=== PATIENT | female | born 1970 | race African-American/Black ===

== ENCOUNTER 2017-10-22 10:09 | Outpatient (CLI) | payer MEDICARE, MEDICAID ==
[2017-10-22] MEDS ORDERED: Iopamidol 370 76% 100 ML VIAL ONE (12:02)
--- NOTE | 2017-10-22 14:54 | CT ---
CT NECK WITH CONTRAST: Date: 10-22-17 History: 46-year-old female with left supraclavicular neck pain with swelling. M54.2, cervical (neck) pain. Technique: IV injection of 100 ml Isovue 370 90 second delayed scans from mid orbits to several centimeters inferior to the gagandeep. Coronal and sa gittal reconstructions. FINDINGS: No consolidation at lung apices. No upper mediastinal lymphadenopathy. Left and right lobes of thyroi d gland are symmetrically mildly enlarged. Body habitus and streak artifact makes it difficult to elvia luate the thyroid parenchyma. Bilaterally medialized, tortuous common carotid arteries and internal c arotid arteries in the retropharyngeal space, symmetrically distorting the posterior pharyngeal wall bilaterally. No tumor of the larynx identified. Thickening of the adenoids. No evidence of mass, absc ess, or lymphadenopathy by size criteria. No destructive osseous lesion of the left clavicle. There i s bilateral moderate DJD at AC joints. There are several subchondral cysts at the heads of the clavic les bilaterally, left greater than right. The left clavicular head is subluxed slightly superiorly re lative to the manubrium of the sternum. The palatine tonsils are also bilaterally symmetrically enlar ged, and almost contact each other at midline, resulting in narrowing of the oropharyngeal airway. Th e parapharyngeal, submandibular, parotid, perivertebral, posterior cervical, and district fire chief spaces ar e unremarkable. There are scattered, minimally enlarged cervical lymph nodes diffusely. The lingual t onsil is diffusely enlarged. IMPRESSION: 1. Arthrosis and subluxation of the left sternoclavicular junction. 2. Mild to moderate osteoarthrosis of the bilateral acromioclavicular joints. 3. Hyperplasia of Waldeyer's ring. 4. Moderate thyromegaly. 5. Narrowing of the oropharyngeal airway due to tortuous, medialized carotid arteries in the retropha ryngeal space, and enlarged palatine tonsils. 6. No evidence of malignancy. POS: ANTONIO
== END 2017-10-22 10:10 | disposition home or self-care (01) ==
LOC: CT 10:09
PROVIDERS: ATTEND Specialist
DX: M54.2 Cervicalgia (principal); S43.202A Unspecified subluxation of left sternoclavicular joint, initial encounter; J35.3 Hypertrophy of tonsils with hypertrophy of adenoids; E01.0 Iodine-deficiency related diffuse (endemic) goiter
CPT/HCPCS: 70491

== ENCOUNTER 2017-10-23 07:37 | Outpatient (CLI) | payer MEDICARE, MEDICAID | END 2017-10-23 07:38 | disposition home or self-care (01) | LOC: BICMAMMO 07:37 | PROVIDERS: ATTEND Nurse Practitioner Family | DX: Z12.31 Encounter for screening mammogram for malignant neoplasm of breast (principal) | CPT/HCPCS: 77067; G0202 ==

== ENCOUNTER 2017-12-01 09:28 | Outpatient (CLI) | payer MEDICARE, MEDICAID | END 2017-12-01 09:29 | disposition home or self-care (01) | LOC: BICMAMMO 09:28 | PROVIDERS: ATTEND Nurse Practitioner Family | DX: N63.20 Unspecified lump in the left breast, unspecified quadrant (principal); R92.2 Inconclusive mammogram; D24.2 Benign neoplasm of left breast | CPT/HCPCS: 76642; G0206; G0279 ==

== ENCOUNTER → 2017-12-09 | Day surgery (SDC) | payer MEDICARE, MEDICAID | LOC: BICULT 14:14 | PROVIDERS: ATTEND Nurse Practitioner Family | DX: D24.2 Benign neoplasm of left breast (principal); Z88.5 Allergy status to narcotic agent; Z91.048 Other nonmedicinal substance allergy status | CPT/HCPCS: 19100; 76942; 88305; G0206 ==

== ENCOUNTER 2019-03-16 13:52 | Outpatient (CLI) | payer MEDICARE, MEDICAID ==
--- NOTE | 2019-03-16 14:37 | MMO ---
Bilateral MAMMO Bilat Screen [facility]. CLINICAL HISTORY: Patient is 48 years old and is seen for screening. The patient has no family history of breast cancer. The patient has no personal history of cancer. The patient has a history of left Ultrasound Guided Core Biopsy in 2018 - benign. VIEWS: The views performed were: bilateral craniocaudal; bilateral craniocaudal with tomosynthesis; bilateral mediolateral oblique; and bilateral mediolateral oblique with tomosynthesis. FILMS COMPARED: The present examination has been compared to prior imaging studies performed at [facility] on 10/23/2017 and 12/01/2017. MAMMOGRAM FINDINGS: There are scattered fibroglandular densities. There is a stable oval mass with circumscribed margins and associated biopsy clip seen in the upper-outer region of the left breast. There are no suspicious masses, suspicious calcifications, or new areas of architectural distortion. IMPRESSION: THERE IS NO MAMMOGRAPHIC EVIDENCE OF MALIGNANCY. A ROUTINE FOLLOW-UP MAMMOGRAM IN 1 YEAR IS RECOMMENDED. THE RESULTS OF THIS EXAM WERE SENT TO THE PATIENT. ACR BI-RADS Category 2 - Benign finding MAMMOGRAPHY NOTE: 1. A negative mammogram report should not delay a biopsy if a dominant of clinically suspicious mass is present. 2. Approximately 10% to 15% of breast cancers are not detected by mammography. 3. Adenosis and dense breasts may obscure an underlying neoplasm.
== END 2019-03-16 13:53 | disposition home or self-care (01) ==
LOC: BICMAMMO 13:52
PROVIDERS: ATTEND Family Medicine
DX: Z12.31 Encounter for screening mammogram for malignant neoplasm of breast (principal)
CPT/HCPCS: 77063; 77067

== ENCOUNTER 2019-09-20 10:16 | Emergency (ER) | payer MEDICARE, OTHER ==
[2019-09-20] MEDS ORDERED: Dexamethasone 10 MG/ML VIAL ONE (11:05)
[2019-09-20] MEDS ORDERED: Acetaminophen 500 MG TAB ONE (12:09)
== END 2019-09-20 12:13 | disposition home or self-care (01) ==
LOC: ERS 10:16
DX: J98.01 Acute bronchospasm (principal); B34.9 Viral infection, unspecified; B20 Human immunodeficiency virus [HIV] disease; I10 Essential (primary) hypertension
CPT/HCPCS: 94640; J1100; J7620

== ENCOUNTER 2019-12-29 08:41 | Emergency (ER) | payer MEDICARE, OTHER ==
[2019-12-29 09:12] LABS: #Eosinphils 0.1 thou/uL (0.0-0.7); #Lymphocytes 1.8 thou/uL (1.20-3.40); #Monocytes 0.7 thou/uL (0.11-0.59); #Neutrophils 4.2 thou/uL (1.40-6.50); %Basophils 0.7 % (0.0-1.0); %Eosinophils 1.3 % (0.0-10.0); %Monocytes 9.9 % (0.0-10.0); %Neutrophils 62.2 % (42.0-75.0); Hemoglobin 14.6 g/dL (12.0-16.0); Mean Corpuscular HGB CONC 32.8 g/dL (32.0-36.0); Mean Corpuscular Hemoglobin 28.7 pg (27.0-31.0); Mean Corpuscular Volume 87.6 fL (78.0-98.0); Platelet Count 227 thou/uL (130-400); RBC Distribution Width 12.3 % (11.5-14.5); Red Blood Cell (RBC) Count 5.07 mill/uL (4.20-5.40); White Blood Cell (WBC) Count 6.8 thou/uL (4.8-10.8)
[2019-12-29 09:12] LABS: Bacteria/HPF 3+ HPF (None Seen); Bilirubin Negative (Negative); Blood, Urine Negative (Negative); Clarity Clear (Clear); Glucose, Urine (Dipstick) Normal (Negative); Leukocyte 250 Leu/uL (Negative); Nitrite Negative (Negative); Protein, Urine (Dipstick) 20 mg/dL (Neg-Trace); RBC/HPF 0-3 HPF (0-3); Squamous Epithelial 0-3 HPF (0-3); Urobilinogen 3 mg/dL (Less than 2); WBC/HPF 21-50 HPF (0-3)
[2019-12-29 09:28] LABS: ALT (SGPT) 43 U/L (8-55); AST (SGOT) 34 U/L (5-34); Albumin 4.3 g/dL (3.5-5.0); Alkaline Phosphatase 67 U/L (40-110); Anion Gap 12 mmol/L (10-20); BUN (Urea Nitrogen) 8 mg/dL (7.0-18.7); Bilirubin, Total 1.2 mg/dL (0.2-1.2); Calc. Creatinine Clearance 0 mL/min (70-130); Calcium 9.9 mg/dL (7.8-10.44); Carbon Dioxide 26 mmol/L (22-29); Chloride 106 mmol/L (98-107); Estimated GFR-MDRD 87; Globulin 3.5 g/dL (2.4-3.5); Glucose 109 mg/dL (70-105); Potassium 4.1 mmol/L (3.5-5.1); Protein, Total 7.8 g/dL (6.0-8.3); Sodium 140 mmol/L (136-145)
--- NOTE | 2019-12-29 10:09 | RAD ---
Exam: Chest one view HISTORY:Syncope Comparison: 07/15/2006 FINDINGS: Cardiac silhouette: Normal Aorta: Unremarkable Pulmonary vessels: Normal Costophrenic angles: Clear LUNGS: No masses or consolidation. Pneumothorax: None Osseous abnormalities: None IMPRESSION: No acute cardiopulmonary process.
== END 2019-12-29 11:22 | disposition home or self-care (01) ==
LOC: ERS 08:41
DX: N39.0 Urinary tract infection, site not specified (principal); I10 Essential (primary) hypertension; B20 Human immunodeficiency virus [HIV] disease
CPT/HCPCS: 36415; 71045; 80053; 81003; 81015; 83880; 84484; 85025; 93005

== ENCOUNTER 2020-03-26 16:29 | Inpatient (IN) | payer MEDICARE, MEDICAID, OTHER ==
[2020-03-26 17:14] LABS: #Eosinphils 0.1 thou/uL (0.0-0.7); #Lymphocytes 1.4 thou/uL (1.20-3.40); #Monocytes 0.5 thou/uL (0.11-0.59); #Neutrophils 2.6 thou/uL (1.40-6.50); %Basophils 0.3 % (0.0-1.0); %Eosinophils 1.7 % (0.0-10.0); %Lymphocytes 30.2 % (21.0-51.0); %Monocytes 10.9 % (0.0-10.0); Hemoglobin 14.3 g/dL (12.0-16.0); Mean Corpuscular HGB CONC 31.4 g/dL (32.0-36.0); Mean Corpuscular Hemoglobin 27.4 pg (27.0-31.0); Mean Corpuscular Volume 87.2 fL (78.0-98.0); Mean Platelet Volume 9.3 fL (7.4-10.4); Platelet Count 210 thou/uL (130-400); RBC Distribution Width 12.9 % (11.5-14.5); Red Blood Cell (RBC) Count 5.24 mill/uL (4.20-5.40); White Blood Cell (WBC) Count 4.6 thou/uL (4.8-10.8)
--- NOTE | 2020-03-26 17:36 | RAD ---
EXAM: CHEST ONE VIEW PORTABLE: History: Shortness of breath, sore throat Comparison: 12-29-2019 FINDINGS: There is cardiomegaly. There is bilateral vascular congestion which is more prominent than on the loly or study. Probable small pleural effusions. IMPRESSION: Cardiomegaly with worsening vascular congestion and possible mild edema and small pleural effusions c oncerning for the possibility of congestive heart failure. POS: [facility]
[2020-03-26 17:49] LABS: ALT (SGPT) 24 U/L (8-55); AST (SGOT) 19 U/L (5-34); Albumin 4.1 g/dL (3.5-5.0); Alkaline Phosphatase 59 U/L (40-110); Anion Gap 12 mmol/L (10-20); BUN (Urea Nitrogen) 11 mg/dL (7.0-18.7); Calc. Creatinine Clearance 0 mL/min (70-130); Calcium 9.5 mg/dL (7.8-10.44); Carbon Dioxide 24 mmol/L (22-29); Chloride 108 mmol/L (98-107); Estimated GFR-MDRD 78; Globulin 3.4 g/dL (2.4-3.5); Glucose 116 mg/dL (70-105); Potassium 3.8 mmol/L (3.5-5.1); Protein, Total 7.5 g/dL (6.0-8.3); Sodium 140 mmol/L (136-145)
[2020-03-26] MEDS ORDERED: Furosemide 40 MG/4 ML VIAL ONE (19:19)
[2020-03-26] MEDS ORDERED: Nitroglycerin 2% Ointment 1 INCH/1 GM Packet ONE (19:19)
[2020-03-26] MEDS ORDERED: Aspirin Chewable 81 MG TAB ONE (19:19)
[2020-03-26 19:59] LABS: Bacteria/HPF 4+ HPF (None Seen); Bilirubin Negative (Negative); Blood, Urine Trace (Negative); Clarity Turbid (Clear); Glucose, Urine (Dipstick) Normal (Negative); Leukocyte Negative Leu/uL (Negative); Nitrite Negative (Negative); Protein, Urine (Dipstick) 30 mg/dL (Neg-Trace); RBC/HPF 0-3 HPF (0-3); Urobilinogen Normal mg/dL (Less than 2); WBC/HPF 0-3 HPF (0-3)
[2020-03-26] MEDS ORDERED: Acetaminophen 500 MG TAB ONE (21:07)
[2020-03-26 22:11] VITALS: BMI 53.1
[2020-03-26] MEDS ORDERED: Calcium Carbonate 500 MG ChewTAB PO PRN (23:05)
[2020-03-26 23:20] LABS: Troponin I 0.018 ng/mL (< 0.028)
--- NOTE | 2020-03-26 23:25 | PDOC.FPRHP ---
- History of Present Illness Chief Complaint: Dyspnea History of Present Illness: 49yo AAF with h/o HIV on HAART presents for subacute dyspnea. Patient endorses worsening SOB for the past week without acute event or change. Worsening dyspnea with exertion, unable to walk 1 block without SOB. Endorses 4 pillow orthopnea. PND for the past month. Worsening LE edema BL. Denies any recent illnesses, recent surgery, or immobilization. Denies CP, n/v, diaphoresis, cough , congestion, fever/chills, diarrhea/constipation. Denies any cardiac history. Denies recent travel, sick contacts, or known COVID-19 contacts. ED Course: COVID tested. Lasix 40mg, ASA, Nitro. - Allergies/Adverse Reactions Allergies Allergy/AdvReac Type Severity Reaction Status Date / Time hydrocodone Allergy Verified 01/23/20 09:49 tape Allergy Rash Uncoded 01/23/20 09:49 - Home Medications Medication Instructions Recorded Confirmed Type Bictegrav/Emtricit/Tenofov Ala 1 tab PO DAILY 03/26/20 03/26/20 History [Biktarvy 50-200-25 mg Tablet] - History PMHx: HIV, HTN PSHx: Olena, Hyst FHx: Mother with HTN, DMII, and CHF Social: Denies tob, illicits, EtOH. - Review of Systems General: denies: fever/chills, weight/appetite/sleep changes, night sweats, fatigue Eyes: denies: vision changes ENT: denies: nasal congestion, rhinorrhea Respiratory: reports: shortness of breath, exercise intolerance. denies: cough , congestion Cardiovascular: reports: edema, paroxysmal nocturnal dyspnea, orthopnea. denies : chest pain, palpitation Gastrointestinal: denies: nausea, vomiting, diarrhea, constipation, abdominal pain Genitourinary: denies: incontinence, dysuria Skin: denies: rashes Musculoskeletal: reports: stiffness (chronic OA). denies: pain Neurological: denies: numbness, syncope, weakness - Vital signs BP: 181/111 HR: 89 RR: 22 Tmax: 98.9 Pox: 97% on RA Wt: 172kg - Physical Exam Constitutional: NAD, awake, alert and oriented, well developed, other (obese) HEENT: normocephalic and atraumatic, PERRLA, EOMI, conjunctiva clear, grossly normal vision, grossly normal hearing, normal nasal mucosa, MMM Neck: supple, FROM, trachea midline, no JVD Chest: no-tender to palpation Heart: RRR, normal S1/S2, no murmurs/rubs/gallops, pulses present, other (1+ pitting to mid-avilez BL, slightly worse on R as compared to L) Lungs: no respiratory distress, good air movement, no retractions, other ( slight crackles BL bases. Mild end-expiratory wheeze throughout) Abdomen: soft, non-tender, bowel sounds present, no masses/distention Musculoskeletal: normal structure, normal tone Neurological: no focal deficit Skin: other (venous stasis dermatitis on RLE) Psychiatric: normal mood and affect, good judgment and insight, intact recent and remote memory FMR H&P: Results - Labs Result Diagrams: 03/26/20 16:55 03/26/20 16:55 Lab results: WBC 4.6 thou/uL (4.8-10.8) L 03/26/20 16:55 Hgb 14.3 g/dL (12.0-16.0) 03/26/20 16:55 Hct 45.7 % (36.0-47.0) 03/26/20 16:55 MCV 87.2 fL (78.0-98.0) 03/26/20 16:55 Plt Count 210 thou/uL (130-400) 03/26/20 16:55 Neutrophils % 57.0 % (42.0-75.0) 03/26/20 16:55 Sodium 140 mmol/L (136-145) 03/26/20 16:55 Potassium 3.8 mmol/L (3.5-5.1) 03/26/20 16:55 Chloride 108 mmol/L (98-107) H 03/26/20 16:55 Carbon Dioxide 24 mmol/L (22-29) 03/26/20 16:55 BUN 11 mg/dL (7.0-18.7) 03/26/20 16:55 Creatinine 0.93 mg/dL (0.6-1.1) 03/26/20 16:55 Glucose 116 mg/dL (70-105) H 03/26/20 16:55 Calcium 9.5 mg/dL (7.8-10.44) 03/26/20 16:55 Total Bilirubin 1.0 mg/dL (0.2-1.2) 03/26/20 16:55 AST 19 U/L (5-34) 03/26/20 16:55 ALT 24 U/L (8-55) 03/26/20 16:55 Alkaline Phosphatase 59 U/L (40-110) 03/26/20 16:55 B-Natriuretic Peptide 601.3 pg/mL (0-100) H 03/26/20 19:24 Serum Total Protein 7.5 g/dL (6.0-8.3) 03/26/20 16:55 Albumin 4.1 g/dL (3.5-5.0) 03/26/20 16:55 Urine Ketones Negative mg/dL (Negative) 03/26/20 19:34 Urine Blood Trace (Negative) A 03/26/20 19:34 Urine Nitrite Negative (Negative) 03/26/20 19:34 Ur Leukocyte Esterase Negative Caprice/uL (Negative) 03/26/20 19:34 Urine RBC 0-3 HPF (0-3) 03/26/20 19:34 Urine WBC 0-3 HPF (0-3) 03/26/20 19:34 Ur Squamous Epith Cells 7-10 HPF (0-3) A 03/26/20 19:34 Urine Bacteria 4+ HPF (None Seen) A 03/26/20 19:34 - EKG Interpretation EKG: NSR, no ST or T wave abnormality - Radiology Interpretation Chest x-ray Status: image reviewed by me (Vascular congestion BL, trace pleural effusions, cardiomegaly), report reviewed by ct FMR H&P: A/P - Problem List (1) Heart failure Current Visit: Yes Status: Suspected Code(s): I50.9 - HEART FAILURE, UNSPECIFIED Qualifiers: Heart failure chronicity: acute (2) HIV (human immunodeficiency virus infection) Current Visit: Yes Status: Chronic Code(s): B20 - HUMAN IMMUNODEFICIENCY VIRUS [HIV] DISEASE Qualifiers: HIV symptom status: asymptomatic Qualified Code(s): Z21 - Asymptomatic human immunodeficiency virus [HIV] infection status (3) HTN (hypertension) Current Visit: Yes Status: Chronic Code(s): I10 - ESSENTIAL (PRIMARY) HYPERTENSION Qualifiers: Hypertension type: essential hypertension Qualified Code(s): I10 - Essential (primary) hypertension - Plan 49yo AAF with h/o HIV presents with dyspnea admitted for suspected new-onset CHF #Suspected new-onset CHF - CXR with vascular congestion, cardiomegaly, and trace effusions - sxs of 4-pillow orthopnea, PND, exertional dyspnea, and LE edema over past month - s/p 40mg IV lasix in ED - Lytes WNL, VSS and satting well on RA, no acute respiratory distress - Initial trop 0.024, will trend - repeat 20mg IV lasix in AM - ECHO ordered - No acute EKG changes, monitor on tele - risk stratify with A1C, TSH, Lipid panel - strict I's and O's, daily weight - consider cards consult, HF clinic consult pending Echo results #COVID PUI - Swabbed in ED - low suspicion of illness - awaiting results, appropriate precautions #HTN - Will start Lisinopril, monitor and adjust as needed #HIV - cont home medications, follows with Dr. Talbot PCP: CC - none Code: DNR-DNI IVF: SL Diet: HH VTE: Lovenox Disposition/LOS: Admit to tele obs for suspected new-onset CHF. Echo ordered. Anticipate LOS < 48hrs pending workup. FMR H&P: Upper Level - Pertinent history 49 yo F with PMHx of well controlled HIV here with complaint of progressively worsening ARMENTA. She states that for the past month she has noted worsening in her symptoms of ARMENTA and orthopnea. She now needs 3-4 pillows to sleep. She also noted LE edema at times. She denies CP, diaphoresis, n/v, or dizziness. In the ER, an Xray was concerning for pulmonary edema and small b/l effusions. EKG in the ER is reassuring. She required O2 at no time during her time in the ER. ER gave 40mg of IV Lasix. PMHx HIV HTN Surgical hx Cholecystectomy FHx Maternal CHF Denies smoking, etoh, or drugs - Pertinent findings See biology internship note for full ROS, PE, vitals, and labs ROS General denies fever or chills CV Complains of peripheral edema and ARMENTA. Denies CP, palpitation Resp Complains of SOB and cough GI denies n/v/d/c or abdominal pain denies increased frequency or dysuria Neuro denies numbness or weakness PE General A&O x4, NAD HEENT NCAT CV RRR, no murmur Resp Mild crackles in bases b/l, no respiratory distress Abd non tender, no distension, normal BS Extremities Trace pitting edema to mid tib b/l Neuro no focal deficits, CN II-XII intact - Plan Date/Time: 03/26/20 [id number] [place], DO, PGY3 have evaluated this patient and agree with findings/ plan as outlined by biology internship resident. Pertinent changes/additions are listed here. 1.Suspect new onset CHF -Admit to tele obs for further work up. This will likely be delayed by COVID screening. -Echo ordered, CAD risk stratification labs pending. Consult cardiology pending work up results -First trop negative, second pending -Strict I/o -IV Lasix -Consider Beta Mally and statin pending results 2.HTN -Start FLYNN-I 3.HIV -Continue home meds 4. COVID19 PUI -contact precautions until swab results PPx Lovenox Diet HH Code DNAR Addendum - Attending - Attending Attestation Date/Time: 03/27/202028 I personally evaluated the patient and discussed the management with Dr. Sharp yesterday evening. I agree with the History, Examination, Assessment and Plan documented above with any addition or exceptions noted below.
[2020-03-26 23:44] LABS: Cardiac Risk 2.7 (Less than 4.5)
[2020-03-27 00:50] LABS: Hemoglobin A1c 5.2 % (4.0-6.0)
[2020-03-27] MEDS ORDERED: Furosemide 20 MG/2 ML VIAL SLOW IVP SCH (07:00)
--- NOTE | 2020-03-27 07:12 | PDOC.FM ---
- Subjective Subjective: Ms. Savage reports SOB has improved today after lasix. Swelling is improving, though some still remains. - Objective Vital Signs & Weight: Vital Signs (12 hours) Temp Pulse Resp BP Pulse Ox 03/26/20 22:09 98.6 F 85 22 H 148/88 H 94 L Weight Weight 171.912 kg I&O: 03/26/20 03/27/20 03/28/20 06:59 06:59 06:59 Intake Total 720 Output Total 400 Balance 320 Result Diagrams: 03/26/20 16:55 03/26/20 16:55 Phys Exam - Physical Examination Constitutional: NAD (obese) Respiratory: clear to auscultation bilateral (exam limited d/t body habitus and disposable stethescope) Cardiovascular: RRR Gastrointestinal: soft, non-tender, no distention Musculoskeletal: edema present (1+ BLE up to knees) Neurological: non-focal Psychiatric: normal affect Skin: cap refill <2 seconds Dx/Plan - Plan Plan: 49yo AAF with h/o HIV presents with dyspnea admitted for suspected new-onset CHF #Suspected new-onset CHF - CXR with vascular congestion, cardiomegaly, and trace effusions - sxs of 4-pillow orthopnea, PND, exertional dyspnea, and LE edema over past month - s/p 40mg IV lasix in ED, given 20mg IV today - trop 0.024->.018. No acute EKG changes. - ECHO ordered - strict I's and O's, daily weight - consider cards consult, HF clinic consult, medication addition, pending Echo results #COVID PUI - low suspicion of illness - awaiting results, appropriate precautions #HTN - Will start Lisinopril, monitor and adjust as needed #HIV - cont home medications, follows with Dr. Talbot PCP: CC - none Code: DNR-DNI IVF: SL Diet: HH VTE: Lovenox Dispo: symptomatically improving, pending echo Addendum - Attending - Attending Attestation Date/Time: 03/27/20 0119 I personally evaluated the patient and discussed the management with Dr. Abdi. I agree with the History, Examination, Assessment and Plan documented above with any addition or exceptions noted below. Patient feeling improved after diuresis. She is awaiting TTE to determine if this presentation represents new onset HF. Further mgmt dictated by that result. Continue mild diuresis at this time.
[2020-03-27] MEDS: Lisinopril 10 MG TAB PO SCH (08:50)
[2020-03-27] MEDS: Enoxaparin Sodium 40 MG/0.4 ML SYRINGE SC SCH (08:50)
[2020-03-27] MEDS ORDERED: Prevnar 13-Val Conj/PF 0.5 ML SYRINGE IM ONE (09:00)
[2020-03-27 10:35] LABS: SARS-CoV-2 MS2 Positive; SARS-CoV-2 N Gene Negative; SARS-CoV-2 S Gene Negative; SARS-CoV-2 orf1ab Negative
[2020-03-27] MEDS ORDERED: Benzonatate 100 MG CAP PO PRN (20:52)
[2020-03-27] MEDS ORDERED: Benzonatate 100 MG CAP PO SCH (21:00)
[2020-03-28] MEDS: Acetaminophen 325 MG TAB PO PRN (01:47)
[2020-03-28 05:08] LABS: Anion Gap 10 mmol/L (10-20); BUN (Urea Nitrogen) 10 mg/dL (7.0-18.7); Calc. Creatinine Clearance 237 mL/min (70-130); Calcium 9.5 mg/dL (7.8-10.44); Carbon Dioxide 27 mmol/L (22-29); Chloride 105 mmol/L (98-107); Estimated GFR-MDRD Greater than 90; Glucose 103 mg/dL (70-105); Sodium 138 mmol/L (136-145)
--- NOTE | 2020-03-28 07:18 | PDOC.FM ---
- Subjective Subjective: Ms. Savage was sitting up in bed. Reports her breathing is nearly back to baseline. Tolerating PO intake well. Swelling has improved. Had a few runs of asymptomatic vtach on tele overnight. - Objective Vital Signs & Weight: Vital Signs (12 hours) Temp Pulse Resp BP Pulse Ox 03/28/20 03:00 97.6 F 82 19 148/94 H 97 03/27/20 23:21 85 128/86 Weight Weight 171.231 kg I&O: 03/27/20 03/28/20 03/29/20 06:59 06:59 06:59 Intake Total 720 1560 Output Total 400 1200 Balance 320 360 Result Diagrams: 03/26/20 16:55 03/28/20 04:10 Phys Exam - Physical Examination Constitutional: NAD Respiratory: no wheezing, clear to auscultation bilateral Cardiovascular: RRR, no significant murmur Gastrointestinal: soft, non-tender Musculoskeletal: no edema Neurological: non-focal Psychiatric: normal affect Dx/Plan - Plan Plan: 49yo AAF with h/o HIV presents with dyspnea admitted for suspected new-onset CHF #Suspected new-onset CHF - CXR with vascular congestion, cardiomegaly, and trace effusions. trop 0.024-> .018. No acute EKG changes. - sxs of PND, exertional dyspnea, and LE edema over past month - s/p 40mg, 20mg IV lasix. - ECHO ordered - strict I's and O's, daily weight - consider cards consult, HF clinic consult, medication addition, pending Echo results #COVID Negative #HTN - Continue lisinopril #HIV - cont home medications, follows with Dr. Talbot PCP: CC - none Code: DNR-DNI IVF: SL Diet: HH VTE: Lovenox Dispo: symptomatically improving, pending echo Addendum - Attending - Attending Attestation Date/Time: 03/28/20 1203 I personally evaluated the patient and discussed the management with Dr. Abdi. I agree with the History, Examination, Assessment and Plan documented above with any addition or exceptions noted below. Patient feeling at baseline. Needs TTE today and further mgmt pending that result.
[2020-03-28] MEDS: Enoxaparin Sodium 40 MG/0.4 ML SYRINGE SC SCH (09:01)
[2020-03-28] MEDS: Lisinopril 10 MG TAB PO SCH ×2 (09:02→19:35)
[2020-03-28] MEDS ORDERED: Loratadine 10 MG TAB PO PRN (10:32)
[2020-03-28] MEDS: Carvedilol 3.125 MG TAB PO SCH (17:44)
--- NOTE | 2020-03-28 21:39 | CON ---
DATE OF CONSULTATION: 03/28/2020 REASON FOR CONSULTATION: Congestive heart failure, systolic. HISTORY OF PRESENT ILLNESS: Ms. Devora Savage is a 49-year-old woman with a history of morbid obesity, found to have severely depressed left ventricular function. The patient states that in the last few months, she has been progressively more short of breath. No chest pain or pressure. She has also been hypertensive. She has been here and in view of the fact that she had a cough, they did draw a COVID nasal screen which was negative. However, she was found to have ejection fraction of 20% to 25%. PAST HISTORY: She is HIV positive. She said she thinks since about 2006 or 2008, she has been on suppressive treatment and has done well from that standpoint. The patient does have morbid obesity and she said she has gained about another 30 pounds in the last few years. CURRENT MEDICATIONS: She takes: 1. Lisinopril 10 mg a day. 2. Enoxaparin. 3. Furosemide. 4. Nitroglycerin. 5. Aspirin. REVIEW OF SYSTEMS: CONSTITUTIONAL: She has been gradually gaining weight. VISION: No changes. HEARING: No changes. PULMONARY: No cough or wheezing. GASTROINTESTINAL: No nausea, vomiting, or diarrhea. SKIN: No rashes. NEUROLOGIC: No unilateral weakness or numbness. PSYCHIATRIC: No unusual depression or anxiety. FAMILY HISTORY: Showed her mother had a defibrillator. PHYSICAL EXAMINATION: VITAL SIGNS: Blood pressure is still high at 135/99, pulse 80 and it is regular. HEENT: Eyes, sclerae nonicteric. Mouth, mucous membranes moist. NECK: Supple. No lymphadenopathy. LUNGS: Clear. CARDIAC: Normal S1, normal S2. There is no murmur, rub, or gallop. HEART: Sounds are distant. ABDOMEN: obese. EXTREMITIES: No clubbing, cyanosis, or edema. It is hard to feel pedal pulses. It is hard to feel femoral pulses probably due to her obesity. The femoral pulses are palpable, however. LABORATORY DATA: Echocardiogram, ejection fraction 20% to 25%. White blood cell count 4.6. BNP 603. LDL cholesterol 48. Rhythm strip, she has had some nonsustained ventricular tachycardia. The patient's BMI is 52.7. ASSESSMENT: 1. Congestive heart failure, systolic, acute on chronic. 2. Morbid obesity. BMI is over 50. 3. HIV positive, on suppressive therapy. PLAN: 1. We will go ahead and increase lisinopril, probably changed to Entresto as an outpatient if her plan cover this. 2. Weight loss will be very essential if she has to have a good long-term outcome. 3. We will add carvedilol. We will follow with you. Tentatively planned cardiac catheterization on . Job ID: [id number]
[2020-03-29 05:10] LABS: Anion Gap 12 mmol/L (10-20); BUN (Urea Nitrogen) 10 mg/dL (7.0-18.7); Calc. Creatinine Clearance 239 mL/min (70-130); Calcium 9.4 mg/dL (7.8-10.44); Carbon Dioxide 24 mmol/L (22-29); Chloride 105 mmol/L (98-107); Estimated GFR-MDRD Greater than 90; Glucose 98 mg/dL (70-105); Potassium 4.1 mmol/L (3.5-5.1); Sodium 137 mmol/L (136-145)
--- NOTE | 2020-03-29 08:00 | PDOC.FM ---
- Subjective Subjective: Ms. Savage has no complaints this morning. Awaiting cath possibly tomorrow. Denies SOB. Has been walking around room without difficulty. - Objective Vital Signs & Weight: Vital Signs (12 hours) Temp Pulse Resp BP BP Pulse Ox 03/29/20 07:37 98.2 F 83 14 132/90 97 03/29/20 03:15 97.9 F 79 20 123/74 97 Weight Weight 173.408 kg I&O: 03/28/20 03/29/20 03/30/20 06:59 06:59 06:59 Intake Total 1560 790 Output Total 1200 Balance 360 790 Result Diagrams: 03/26/20 16:55 03/29/20 04:22 Phys Exam - Physical Examination Constitutional: NAD Respiratory: no wheezing, clear to auscultation bilateral Cardiovascular: RRR, no significant murmur Gastrointestinal: soft (obese) Musculoskeletal: no edema Neurological: non-focal Psychiatric: normal affect Dx/Plan - Plan Plan: 49yo AAF with h/o HIV presents with dyspnea admitted for suspected new-onset CHF #New-onset Hfref - CXR with vascular congestion, cardiomegaly, and trace effusions. trop 0.024-> .018. No acute EKG changes. - sxs over past month - s/p 40mg, 20mg IV lasix. - ECHO with EF 20-25% - strict I's and O's, daily weight - Appreciate cardiology recommendations, plan for cath hopefully tomorrow. On zhou and BB now. Possible lifevest if could fit. #COVID Negative #HTN - Continue meds as above #HIV - cont home medications, follows with Dr. Talbot PCP: CC - none Code: DNR-DNI IVF: SL Diet: HH VTE: Lovenox Dispo: symptomatically improved, awaiting cath Addendum - Attending - Attending Attestation Date/Time: 03/29/20 0801 I personally evaluated the patient and discussed the management with Dr. Abdi. I agree with the History, Examination, Assessment and Plan documented above with any addition or exceptions noted below. Patient with new onset sCHF. Cardiology on board with plans for cath on . Medication modulation to optimize her treatment in the meantime.
[2020-03-29] MEDS: Lisinopril 10 MG TAB PO SCH ×2 (08:31→20:43)
[2020-03-29] MEDS: Enoxaparin Sodium 40 MG/0.4 ML SYRINGE SC SCH (08:31)
[2020-03-29] MEDS: Carvedilol 3.125 MG TAB PO SCH ×2 (08:31→16:26)
[2020-03-29] MEDS ORDERED: Communication Order-Pharmacy FS SCH (14:30)
--- NOTE | 2020-03-29 17:32 | PRG ---
DATE OF SERVICE: 03/29/2020 SUBJECTIVE: Hussein feels well. No chest pain. No shortness of breath. She is sitting up without complaints. OBJECTIVE: VITAL SIGNS: Blood pressure 132/96, pulse 82. LUNGS: Clear. CARDIAC: No new changes. EXTREMITIES: Only mild edema. ASSESSMENT: 1. Congestive heart failure, systolic, acute on chronic, improved. No longer in acute heart failure. 2. Morbid obesity. PLAN: Proceed to cardiac catheterization tomorrow. Assess for risk of stroke, heart attack, iodine allergy, loss of blood supply to leg or kidney or arm, stent thrombosis, stent restenosis. She understands and wished to proceed. Dr. Santo will proceed tomorrow as she would be high risk of complications from the groin in view of the morbid obesity. We will discuss with [email or web address] whether she would be a candidate for vest, but with her body dimensions and size of her chest, I do not know if vest is available to fit her. We will discuss that prior to discharge. Job ID: [id number]
[2020-03-30] MEDS ORDERED: Sodium Chloride 0.9% 1,000 ML IV SCH (06:00)
[2020-03-30] MEDS ORDERED: Diazepam 5 MG TAB PO SCH (06:00)
[2020-03-30] MEDS: Lisinopril 10 MG TAB PO SCH ×2 (06:03→20:09)
[2020-03-30] MEDS ORDERED: Heparin 10,000 UNITS/1 ML VIAL ONE (07:10)
[2020-03-30] MEDS ORDERED: Verapamil 5 MG/2 ML VIAL ONE (07:10)
[2020-03-30] MEDS ORDERED: Heparin 0 ML ONE (07:11)
[2020-03-30] MEDS ORDERED: Nitroglycerin 100MG/250ML BOT 250 ML ONE (07:11)
[2020-03-30 07:16] LABS: Anion Gap 13 mmol/L (10-20); BUN (Urea Nitrogen) 8 mg/dL (7.0-18.7); Calc. Creatinine Clearance 249 mL/min (70-130); Calcium 9.3 mg/dL (7.8-10.44); Carbon Dioxide 23 mmol/L (22-29); Chloride 106 mmol/L (98-107); Estimated GFR-MDRD Greater than 90; Glucose 104 mg/dL (70-105); Potassium 4.1 mmol/L (3.5-5.1); Sodium 138 mmol/L (136-145)
--- NOTE | 2020-03-30 07:27 | PDOC.FM ---
- Subjective Subjective: Ms. Savage is feeling well today. Denies SOB or edema. Has no new concerns. - Objective MAR Reviewed: Yes Vital Signs & Weight: Vital Signs (12 hours) Temp Pulse Resp BP Pulse Ox 03/30/20 03:08 98.1 F 75 18 163/105 H 98 Weight Weight 171.549 kg I&O: 03/29/20 03/30/20 03/31/20 06:59 06:59 06:59 Intake Total 790 500 Output Total 900 Balance 790 -400 Result Diagrams: 03/26/20 16:55 03/30/20 06:48 Phys Exam - Physical Examination Constitutional: NAD Respiratory: no wheezing, clear to auscultation bilateral Cardiovascular: RRR, no significant murmur Gastrointestinal: soft Musculoskeletal: no edema Neurological: non-focal Psychiatric: normal affect Skin: normal turgor Dx/Plan - Plan Plan: 49yo AAF with h/o HIV presents with dyspnea admitted for suspected new-onset CHF #New-onset Hfref - CXR with vascular congestion, cardiomegaly, and trace effusions. No acute EKG changes. - sxs over past month - s/p 40mg, 20mg IV lasix. Appears euvolemic now. - ECHO with EF 20-25% - strict I's and O's, daily weight - Appreciate cardiology recommendations, plan for cath today. On zhou and BB now. Possible lifevest if could fit. #COVID Negative #HTN - Continue meds as above #HIV - cont home medications, follows with Dr. Talbot PCP: CC - none Code: DNR-DNI IVF: SL Diet: HH VTE: Lovenox Dispo: symptomatically improved, awaiting cath Addendum - Attending - Attending Attestation Date/Time: 03/30/20 9627 I personally evaluated the patient and discussed the management with Dr. Abdi. I agree with the History, Examination, Assessment and Plan documented above with any addition or exceptions noted below. Patient overall stable. Heart cath was reportedly clear. Await further cardiology recs regarding her nonischemic cardiomyopathy treatment.
[2020-03-30] MEDS ORDERED: Carvedilol 6.25 MG TAB PO SCH (08:00)
[2020-03-30] MEDS ORDERED: Fentanyl 100 MCG/2 ML VIAL ONE (08:37)
[2020-03-30] MEDS ORDERED: Midazolam HCl 2 mg/2 ml Vial ONE (08:37)
[2020-03-30] MEDS ORDERED: Sodium Chloride 0.9% 200 ML IV PRN (09:37)
[2020-03-30] MEDS ORDERED: Sodium Chloride 0.9% 250 ML IV SCH (09:45)
[2020-03-30] MEDS: Acetaminophen 325 MG TAB PO PRN (11:33)
[2020-03-30] MEDS ORDERED: Furosemide 40 MG/4 ML VIAL SLOW IVP SCH (16:30)
[2020-03-30] MEDS: Carvedilol 6.25 MG TAB PO SCH (20:08)
[2020-03-31 05:19] LABS: Anion Gap 13 mmol/L (10-20); BUN (Urea Nitrogen) 7 mg/dL (7.0-18.7); Calc. Creatinine Clearance 246 mL/min (70-130); Calcium 9.3 mg/dL (7.8-10.44); Carbon Dioxide 25 mmol/L (22-29); Chloride 105 mmol/L (98-107); Estimated GFR-MDRD Greater than 90; Glucose 96 mg/dL (70-105); Sodium 139 mmol/L (136-145)
[2020-03-31] MEDS ORDERED: Furosemide 40 MG/4 ML VIAL SLOW IVP SCH ×2 (06:00→09:00)
--- NOTE | 2020-03-31 07:26 | PDOC.FM ---
- Subjective Subjective: Ms. Savage reports feeling well this morning. She is ready to go home. Denies SOB, difficulty breathing, edema. - Objective Vital Signs & Weight: Vital Signs (12 hours) Temp Pulse Resp BP BP BP Pulse Ox 03/31/20 03:08 98.2 F 79 18 148/80 H 95 03/31/20 00:10 97.8 F 74 18 136/79 93 L 03/30/20 20:09 164/103 H 03/30/20 20:08 164/103 H 03/30/20 20:04 97.6 F 76 22 H 164/103 H 98 Weight Weight 173 kg I&O: 03/30/20 03/31/20 04/01/20 06:59 06:59 06:59 Intake Total 500 1210 Output Total 900 3000 Balance -400 -1790 Result Diagrams: 03/26/20 16:55 03/31/20 04:22 Phys Exam - Physical Examination Constitutional: NAD Respiratory: clear to auscultation bilateral Cardiovascular: RRR, no significant murmur Gastrointestinal: soft Musculoskeletal: no edema Neurological: non-focal Psychiatric: normal affect Dx/Plan - Plan Plan: 49yo AAF with h/o HIV presents with dyspnea admitted for suspected new-onset CHF #New-onset Hfref - CXR with vascular congestion, cardiomegaly, and trace effusions. No acute EKG changes. - sxs over past month - s/p 40mg, 20mg IV lasix. Given IV dose this am. Appears euvolemic. - ECHO with EF 20-25%. Cath normal. - strict I's and O's, daily weight - Appreciate cardiology recommendations, on zhou and BB now. Possible lifevest if could fit. #COVID Negative #HTN - Continue meds as above #HIV - cont home medications, follows with Dr. Talbot PCP: CC - none Code: DNR-DNI IVF: SL Diet: HH VTE: Lovenox Dispo: Appreciate cardiology recommendations. Patient could be discharged today if meds and lifevest are sorted out. Addendum - Attending - Attending Attestation Date/Time: 03/31/20 [id number] I personally evaluated the patient and discussed the management with Dr. Abdi. I agree with the History, Examination, Assessment and Plan documented above with any addition or exceptions noted below. Patient here with dilated nonischemic cardiomyopathy. On normal HF meds. Cardiology has cleared for discharge.
[2020-03-31] MEDS ORDERED: Carvedilol 6.25 MG TAB PO SCH (08:00)
--- NOTE | 2020-03-31 09:13 | PRG ---
DATE OF SERVICE: 03/31/2020 SUBJECTIVE: Ms. Savage is awake and alert. She feels better. She is able to lie flat now. She had no chest pain or pressure. OBJECTIVE: VITAL SIGNS: Her blood pressure is still variable with a blood pressure of 164/103 late yesterday at 8 p.m., 148/80 at 3 a.m., then 131/80 this morning at 7:20. Pulse 70. LUNGS: Clear. CARDIAC: Normal S1 and S2. EXTREMITIES: There is no edema. Cardiac catheterization yesterday revealed no coronary artery disease. ASSESSMENT: 1. Severe cardiomyopathy. 2. Morbid obesity, BMI 53. 3. Hypertension. PLAN: 1. She is on Coreg 6.25 mg twice a day. 2. Lisinopril 10 mg twice a day. 3. Furosemide 40 mg orally twice a day. 4. Potassium 20 mEq a day. 5. As an outpatient, I would like to change her from lisinopril to Entresto. 6. Ultimately, also increase the carvedilol dose. Okay to be discharged to home at the present time. We discussed LifeVest. I did have the office machines sales representative from the [employer] measure Ms. Savage's chest circumference, she is much larger than any of the currently available vests. Therefore, due to the body dimensions, LifeVest is not feasible. If the patient has an ejection fraction below 35% for 3 months, implantable defibrillator could be done. For now, medical therapy is the appropriate choice as mentioned. Due to the body dimensions, LifeVest is not feasible. Job ID: [id number]
[2020-03-31] MEDS: Lisinopril 10 MG TAB PO SCH (09:22)
[2020-03-31] MEDS: Carvedilol 6.25 MG TAB PO SCH (09:28)
[2020-03-31 11:49] VITALS: BP 131/84; TEMP 97.7
[2020-03-31] MEDS ORDERED: Potassium Chloride 20 MEQ TAB PO SCH (12:00)
[2020-03-31] MEDS: Bictegrav/Emtricit/Tenofov Ala [Biktarvy 50-200-25 Mg Tablet] PO SCH (13:37)
[2020-03-31] MEDS ORDERED: Furosemide 40 MG TAB PO SCH (14:00)
[2020-03-31] MEDS ORDERED: Furosemide 20 MG TAB PO SCH (14:00)
[2020-04-01] MEDS ORDERED: Potassium Chloride 20 MEQ TAB PO SCH (08:00)
--- NOTE | 2020-04-03 04:01 | DIS ---
DATE OF ADMISSION: 03/28/2020 DATE OF DISCHARGE: 03/31/2020 RESIDENT: Leslie Abdi DO ADMITTING ATTENDING: Fausto Boogie MD DISCHARGE ATTENDING: Beto Kelly MD CONSULT: Cardiology, Dr. Bey. PROCEDURES: 03/28/2020, echocardiogram showed ejection fraction of 20% to 25%, left ventricular size moderately to severely increased, left atrium moderately to severely dilated. [id number] mitral regurgitation present. [id number] tricuspid regurgitation. Mild pulmonic regurgitation present. 03/30/2020, cardiac catheterization showed no significant coronary artery disease, elevated LVEDP, dilated left ventricular with severely reduced left ventricular function. Performed by Dr. Santo. PRIMARY DIAGNOSIS: New onset heart failure with reduced ejection fraction. SECONDARY DIAGNOSES: 1. Hypertension. 2. Human immunodeficiency virus. DISCHARGE MEDICATIONS: 1. Potassium chloride 20 mEq p.o. q.a.m. 2. Lisinopril 10 mg p.o. b.i.d. 3. Lasix 40 mg p.o. b.i.d. 4. Carvedilol 6.25 mg p.o. b.i.d. 5. Biktarvy one tablet p.o. daily. DISCONTINUED MEDICATIONS: None. HISTORY OF PRESENT ILLNESS: A 49-year-old female, with past medical history of HIV and morbid obesity, presented for worsening shortness of breath over the past week in addition to lower extremity edema. She was given Lasix in the emergency department. EKG showed no abnormalities. She was admitted for suspected new onset CHF, which was confirmed with echocardiogram. Cardiology was consulted, catheterization performed with results noted above. COVID negative. Patient did not require much diuresis during hospitalization, her symptoms improved quite rapidly. Due to BMI, patient not a candidate for LifeVest, though this would be appropriate. Cardiology recommended that if ejection fraction is below 35% for three months, then an implantable defibrillator could be considered. Continue with medical therapy. DISPOSITION: Stable. DISCHARGE INSTRUCTIONS: Location: Home. Diet: Heart healthy. Activity: As tolerated. Followup: Follow up with the [facility] on 04/05/2020 at 11:[address] Bey in 2 to 3 weeks. Patient is set up with cardiac rehab. Job ID: [id number] [facility]
== END 2020-03-31 13:31 | disposition home or self-care (01) | DRG 287 ==
LOC: ERS 16:29 → 2SW 22:03 → 2NO 03-27 16:05 → OBSVTOIN 03-28 13:30
PROVIDERS: ADMIT Family Medicine; ATTEND Family Medicine
PROC: 4A023N7 Measurement of Cardiac Sampling and Pressure, Left Heart, Percutaneous Approach (ICD-10-PCS; principal; 2020-03-30)
PROC: B2111ZZ Fluoroscopy of Multiple Coronary Arteries using Low Osmolar Contrast (ICD-10-PCS; 2020-03-30)
PROC: B2151ZZ Fluoroscopy of Left Heart using Low Osmolar Contrast (ICD-10-PCS; 2020-03-30)
DX: I11.0 Hypertensive heart disease with heart failure (principal); Z68.43 Body mass index [BMI] 50.0-59.9, adult; I50.23 Acute on chronic systolic (congestive) heart failure; E66.01 Morbid (severe) obesity due to excess calories; Z66 Do not resuscitate; I42.9 Cardiomyopathy, unspecified; Z20.828 Contact with and (suspected) exposure to other viral communicable diseases; Z21 Asymptomatic human immunodeficiency virus [HIV] infection status; Z88.5 Allergy status to narcotic agent; Z79.899 Other long term (current) drug therapy
CPT/HCPCS: 36415; 71045; 76942; 80048; 80053; 80061; 81003; 81015; 83036; 83880; 84443; 84484; 85025; 87635; 90471; 90670; 93005; 93306; 93458; 93798; 94760; 96374; 99152; 99153; C1769; G0009; J1644; J1650; J1940; J2250; J3010; U0003

== ENCOUNTER 2020-07-11 07:51 | Outpatient (CLI) | payer MEDICARE, MEDICAID, OTHER ==
[2020-07-11 18:02] LABS: Hemoglobin 13.6 g/dL (12.0-16.0); Mean Corpuscular HGB CONC 31.6 g/dL (32.0-36.0); Mean Corpuscular Hemoglobin 27.6 pg (27.0-31.0); Mean Corpuscular Volume 87.2 fL (78.0-98.0); Mean Platelet Volume 9.1 fL (7.4-10.4); Platelet Count 239 thou/uL (130-400); RBC Distribution Width 13.8 % (11.5-14.5); Red Blood Cell (RBC) Count 4.94 mill/uL (4.20-5.40); White Blood Cell (WBC) Count 4.8 thou/uL (4.8-10.8)
[2020-07-11 18:07] LABS: INR-International Normal Ratio 0.9
[2020-07-11 18:11] LABS: Anion Gap 11 mmol/L (10-20); BUN (Urea Nitrogen) 18 mg/dL (7.0-18.7); Calc. Creatinine Clearance 0 mL/min (70-130); Calcium 9.5 mg/dL (7.8-10.44); Carbon Dioxide 29 mmol/L (22-29); Chloride 105 mmol/L (98-107); Estimated GFR-MDRD 76; Glucose 95 mg/dL (70-105); Potassium 4.2 mmol/L (3.5-5.1); Sodium 141 mmol/L (136-145)
[2020-07-12 13:03] LABS: SARS-CoV-2 MS2 Positive; SARS-CoV-2 N Gene Negative; SARS-CoV-2 S Gene Negative; SARS-CoV-2 by NAA Not Detected (NotDetected); SARS-CoV-2 orf1ab Negative
== END 2020-07-11 07:52 | disposition home or self-care (01) ==
LOC: LABBT 07:51
PROVIDERS: ATTEND Internal Medicine Cardiovascular Disease
DX: I42.0 Dilated cardiomyopathy (principal); I50.9 Heart failure, unspecified; Z20.828 Contact with and (suspected) exposure to other viral communicable diseases
CPT/HCPCS: 80048; 85027; 85610; U0003; 87635

== ENCOUNTER 2020-07-14 06:19 | Day surgery (SDC) | payer MEDICARE, MEDICAID ==
[2020-07-12 10:09] VITALS: BMI 48.5
[2020-07-14] MEDS ORDERED: Vancomycin HCl 500 MG VIAL ONE (06:55)
[2020-07-14] MEDS ORDERED: Fentanyl 100 MCG/2 ML VIAL ONE ×2 (07:31→10:09)
[2020-07-14] MEDS ORDERED: Lidocaine 2% Jelly 5 ML TUBE ONE (07:31)
[2020-07-14] MEDS ORDERED: Propofol 1,000 MG/100 ML VIAL IV ONE (07:32)
[2020-07-14] MEDS ORDERED: Midazolam HCl 2 mg/2 ml Vial ONE (08:06)
[2020-07-14] MEDS ORDERED: Ketamine 50 MG/ML (10ML VIAL) ONE (08:06)
[2020-07-14] MEDS ORDERED: CEFAZOLIN 1 GM VIAL ONE (08:36)
[2020-07-14] MEDS ORDERED: Gentamicin 80 MG/2 ML VIAL ONE (08:36)
--- NOTE | 2020-07-14 10:26 | RAD ---
RADIOGRAPH CHEST 1 VIEW: DATE: 07/14/2020 TIME: 10:08 AM HISTORY: 49-year-old female status post pacemaker placement COMPARISON: 03/26/2020 FINDINGS: Low image resolution due to body habitus. The previously demonstrated pulmonary edema is no longer pr esent. There is still cardiomegaly with pulmonary venous congestion. No large consolidation. New left-sided generator with multiple AICD leads. No pneumothorax identified. IMPRESSION: 1) insertion of automatic implantable cardioverter-defibrillator without pneumothorax. 2) cardiomegaly and pulmonary venous congestion
[2020-07-14] MEDS ORDERED: PROPOFOL 200 MG/20 ML VIAL ONE (11:40)
[2020-07-14] MEDS ORDERED: Acetaminophen 500 MG TAB ONE (11:52)
--- NOTE | 2020-07-16 16:08 | EKG ---
Test Reason : POST ICD Blood Pressure : / mmHG Vent. Rate : 060 BPM Atrial Rate : 060 BPM P-R Int : 192 ms QRS Dur : 106 ms QT Int : 476 ms P-R-T Axes : 088 023 000 degrees QTc Int : 476 ms Electronic atrial pacemaker Low voltage QRS Cannot rule out Anterior infarct , age undetermined Abnormal ECG No previous ECGs available Confirmed by Agustin ARNOLD ([id number]) on 07/16/2020 4:08:30 PM Referred By: SHANDA Confirmed By:Agustin ARNOLD
== END 2020-07-14 14:35 | disposition home or self-care (01) ==
LOC: CCL 06:19
PROVIDERS: ATTEND Internal Medicine Cardiovascular Disease
PROC: 0JH608Z Insertion of Defibrillator Generator into Chest Subcutaneous Tissue and Fascia, Open Approach (ICD-10-PCS; principal; 2020-07-14)
PROC: 02H63KZ Insertion of Defibrillator Lead into Right Atrium, Percutaneous Approach (ICD-10-PCS; 2020-07-14)
PROC: 02HK3KZ Insertion of Defibrillator Lead into Right Ventricle, Percutaneous Approach (ICD-10-PCS; 2020-07-14)
DX: I42.8 Other cardiomyopathies (principal); I11.0 Hypertensive heart disease with heart failure; I50.22 Chronic systolic (congestive) heart failure; I34.0 Nonrheumatic mitral (valve) insufficiency; K21.9 Gastro-esophageal reflux disease without esophagitis; E66.9 Obesity, unspecified; Z68.42 Body mass index [BMI] 45.0-49.9, adult; Z21 Asymptomatic human immunodeficiency virus [HIV] infection status; Z79.899 Other long term (current) drug therapy; Z88.5 Allergy status to narcotic agent; Z91.048 Other nonmedicinal substance allergy status
CPT/HCPCS: 33249; 36005; 71045; 75820; 93005; C1898; J0690; J1580; J2250; J2704; J3010; J3370

== ENCOUNTER 2021-04-27 09:00 | Outpatient (CLI) | payer OTHER | END 2021-04-27 09:01 | disposition home or self-care (01) | LOC: DTY/OP 09:00 | PROVIDERS: ATTEND Surgery | DX: E66.01 Morbid (severe) obesity due to excess calories (principal) | CPT/HCPCS: 97802 ==

== ENCOUNTER 2021-07-06 11:15 | Inpatient (IN) | payer MEDICARE, MEDICAID ==
[2021-09-05] MEDS ORDERED: ceFAZolin 2 GM/DEX 5% 100 ML BAG ONE (06:27)
[2021-09-05] MEDS ORDERED: Heparin 5,000 UNITS/ML VIAL ONE (06:28)
[2021-09-05] MEDS ORDERED: Bupivacaine 0.25% HCL 30 ML VIAL ONE (06:38)
[2021-09-05] MEDS ORDERED: Lidocaine 1% w/Epinephrine 1:100K 20 ML VIAL ONE (06:38)
[2021-09-05] MEDS ORDERED: Fentanyl 100 MCG/2 ML VIAL ONE ×2 (06:55→10:06)
[2021-09-05] MEDS ORDERED: SUGAMMADEX SODIUM 200 MG/2 ML VIAL ONE (06:55)
[2021-09-05] MEDS ORDERED: Dexamethasone 20 MG/5 ML VIAL ONE (07:50)
[2021-09-05] MEDS ORDERED: Lidocaine 1% PF 5 ML VIAL ONE (07:50)
[2021-09-05] MEDS ORDERED: PROPOFOL 200 MG/20 ML VIAL ONE (07:50)
[2021-09-05] MEDS ORDERED: PHENYLEPHRINE-NS 100 MCG/ML 10 ML SYRINGE ONE ×3 (07:50→09:01)
[2021-09-05] MEDS ORDERED: Ondansetron PF 4 MG/2 ML Vial ONE (07:50)
[2021-09-05] MEDS ORDERED: Rocuronium Bromide 10 MG/ML (10ML VIAL) ONE (07:50)
[2021-09-05] MEDS ORDERED: Phenylephrine 10 MG/ML VIAL ONE (09:05)
[2021-09-05] MEDS ORDERED: hydrALAZINE 20 MG/ML VIAL SLOW IVP PRN (09:54)
[2021-09-05] MEDS ORDERED: Ondansetron PF 4 MG/2 ML Vial IVP PRN ×2 (09:54→10:16)
[2021-09-05] MEDS ORDERED: Dextrose 50% Abboject 50 ML SYRINGE SLOW IVP PRN (09:54)
[2021-09-05] MEDS ORDERED: Dextrose 5% in Water 1,000 ML IV PRN (09:54)
[2021-09-05] MEDS ORDERED: diphenhydrAMINE 50 MG/ML VIAL IVP PRN ×2 (09:54→10:16)
[2021-09-05] MEDS ORDERED: Promethazine HCl 25 MG/ML VIAL IM PRN ×2 (09:54→10:16)
[2021-09-05] MEDS ORDERED: Naloxone HCl 0.4 mg/ml Vial IV PRN (10:16)
[2021-09-05] MEDS ORDERED: diphenhydrAMINE 50 MG/ML VIAL IM PRN (10:16)
[2021-09-05] MEDS ORDERED: fentaNYL Citrate/PF 2,000 MCG in Sodium Chloride 0.9% 60 ML IV PRN (10:16)
[2021-09-05] MEDS ORDERED: diphenhydrAMINE 25 MG CAP PO PRN (10:16)
[2021-09-05] MEDS ORDERED: Zolpidem Tartrate 5 MG TAB PO PRN (10:16)
[2021-09-05] MEDS ORDERED: Communication Order-Pharmacy FS SCH (10:30)
[2021-09-05] MEDS ORDERED: Ketorolac Tromethamine 30 MG/ML VIAL ONE (10:40)
[2021-09-05] MEDS: Ketorolac Tromethamine 30 MG/ML VIAL IVP SCH ×3 (10:41→23:24)
[2021-09-05] MEDS ORDERED: Sodium Chloride 0.9% (PF) 10 ML VIAL FS PRN (11:00)
[2021-09-05] MEDS: D5 1/2 NS w/20 mEq KCL 1,000 ML IV SCH ×3 (13:08→23:25)
[2021-09-05] MEDS ORDERED: ceFAZolin Sodium/D5W 2 GM in Premix Bag 1 BAG IVPB SCH (15:00)
[2021-09-05] MEDS ORDERED: CEFAZOLIN 2 GM in Sodium Chloride 0.9% 100 ML IVPB SCH (16:00)
[2021-09-05] MEDS: CEFAZOLIN 2 GM, Admixture Fee 1 EACH in Sodium Chloride 0.9% 100 ML IVPB SCH ×2 (16:37→23:24)
[2021-09-06] MEDS: Ketorolac Tromethamine 30 MG/ML VIAL IVP SCH ×2 (05:42→12:00)
[2021-09-06 05:55] LABS: #Monocytes 0.8 thou/uL (0.11-0.59); %Basophils 0.1 % (0.0-1.0); %Eosinophils 0.3 % (0.0-10.0); %Lymphocytes 12.2 % (21.0-51.0); %Monocytes 9.9 % (0.0-10.0); %Neutrophils 77.5 % (42.0-75.0); Hemoglobin 15.2 g/dL (12.0-16.0); Mean Corpuscular HGB CONC 32.9 g/dL (32.0-36.0); Mean Corpuscular Hemoglobin 28.9 pg (27.0-31.0); Mean Corpuscular Volume 87.6 fL (78.0-98.0); Mean Platelet Volume 8.8 fL (7.4-10.4); Platelet Count 191 thou/uL (130-400); Red Blood Cell (RBC) Count 5.26 mill/uL (4.20-5.40); White Blood Cell (WBC) Count 7.8 thou/uL (4.8-10.8)
[2021-09-06 06:58] VITALS: BMI 60.8
[2021-09-06] MEDS ORDERED: Pantoprazole 40 MG VIAL IVP SCH (09:00)
[2021-09-06] MEDS ORDERED: Acetaminophen/Codeine 12.5 ML UDCUP PO PRN (09:14)
[2021-09-06 09:56] LABS: Anion Gap 11 mmol/L (10-20); BUN (Urea Nitrogen) 9 mg/dL (7.0-18.7); Calc. Creatinine Clearance 222 mL/min (70-130); Calcium 9.5 mg/dL (7.8-10.44); Carbon Dioxide 27 mmol/L (22-29); Chloride 107 mmol/L (98-107); Glucose 100 mg/dL (70-105); Potassium 4.3 mmol/L (3.5-5.1); Sodium 141 mmol/L (136-145)
[2021-09-06] MEDS ORDERED: Acetaminophen W/ Codeine 5 ML UDCUP PO PRN (10:21)
[2021-09-06 12:34] VITALS: BP 136/83; TEMP 98.5
[2021-09-06] MEDS: D5 1/2 NS w/20 mEq KCL 1,000 ML IV SCH (12:52)
== END 2021-09-06 17:19 | disposition home or self-care (01) | DRG 620 ==
LOC: SURG A 09-05 06:08 → SJJU 09-05 12:01
PROVIDERS: ADMIT Surgery; ATTEND Surgery
PROC: 0DB64Z3 Excision of Stomach, Percutaneous Endoscopic Approach, Vertical (ICD-10-PCS; principal; 2021-09-05)
PROC: 0DJ08ZZ Inspection of Upper Intestinal Tract, Via Natural or Artificial Opening Endoscopic (ICD-10-PCS; 2021-09-05)
DX: E66.01 Morbid (severe) obesity due to excess calories (principal); B20 Human immunodeficiency virus [HIV] disease; I10 Essential (primary) hypertension; Z20.822 Contact with and (suspected) exposure to COVID-19; Z68.44 Body mass index [BMI] 60.0-69.9, adult; Z86.718 Personal history of other venous thrombosis and embolism; Z98.51 Tubal ligation status; Z90.710 Acquired absence of both cervix and uterus; Z79.899 Other long term (current) drug therapy; Z79.01 Long term (current) use of anticoagulants; Z88.5 Allergy status to narcotic agent
CPT/HCPCS: 36415; 74240; 80048; 85025; 88307; 93005; 93010; C9113; J0690; J1100; J1644; J1885; J2370; J2405; J2704; J3010; J3480; J3490; S0020

== ENCOUNTER 2021-08-31 11:46 | Outpatient (CLI) | payer MEDICARE, MEDICAID ==
[2021-08-31 12:42] LABS: #Eosinphils 0.1 10x3/uL (0.0-0.5); #Monocytes 0.5 10x3/uL (0.0-1.1); #Neutrophils 1.4 10x3/uL (1.5-8.4); %Basophils 0.9 % (0.0-2.0); %Eosinophils 2.7 % (0.0-6.0); %Lymphocytes 38.4 % (18.0-47.0); %Monocytes 13.7 % (0.0-10.0); Hemoglobin 12.9 g/dL (12.0-15.5); Mean Corpuscular Hemoglobin 27.3 pg (27.0-33.0); Mean Corpuscular Volume 87.9 fl (81.6-98.3); Mean Platelet Volume 10.8 fl (7.4-10.4); Platelet Count 240 10x3/uL (150-450); RBC Distribution Width 12.8 % (11.5-14.5); Red Blood Cell (RBC) Count 4.73 10x6/uL (3.90-5.03); White Blood Cell (WBC) Count 3.3 10x3/uL (3.5-10.5)
[2021-08-31 12:55] LABS: ALT (SGPT) 45 U/L (8-55); AST (SGOT) 28 U/L (5-34); Albumin 4.2 g/dL (3.5-5.0); Alkaline Phosphatase 60 U/L (40-110); Anion Gap 12 mmol/L (10-20); BUN (Urea Nitrogen) 19 mg/dL (7.0-18.7); Bilirubin, Total 0.5 mg/dL (0.2-1.2); Calc. Creatinine Clearance 0 mL/min (70-130); Calcium 9.6 mg/dL (7.8-10.44); Carbon Dioxide 27 mmol/L (22-29); Chloride 106 mmol/L (98-107); Glucose 87 mg/dL (70-105); Potassium 4.2 mmol/L (3.5-5.1); Protein, Total 7.2 g/dL (6.0-8.3); Sodium 141 mmol/L (136-145)
[2021-08-31 16:02] LABS: Hemoglobin A1c 5.3 % (4.0-6.0)
[2021-09-01 00:36] LABS: SARS-CoV-2 PCR by NAA Not Detected (NotDetected)
== END 2021-08-31 11:47 | disposition home or self-care (01) ==
LOC: LABBT 11:46
PROVIDERS: ATTEND Surgery
DX: Z01.818 Encounter for other preprocedural examination (principal); I10 Essential (primary) hypertension; Z68.44 Body mass index [BMI] 60.0-69.9, adult; Z20.822 Contact with and (suspected) exposure to COVID-19
CPT/HCPCS: 71046; 80053; 83036; 85025; U0003; U0005

== ENCOUNTER 2021-10-05 10:49 | Outpatient (CLI) | payer MEDICARE, MEDICAID | END 2021-10-05 10:50 | disposition home or self-care (01) | LOC: BICMAMMO 10:49 | PROVIDERS: ATTEND Nurse Practitioner Family | DX: Z12.31 Encounter for screening mammogram for malignant neoplasm of breast (principal); Z91.89 Other specified personal risk factors, not elsewhere classified | CPT/HCPCS: 77063; 77067 ==

== ENCOUNTER 2022-06-02 19:42 | Emergency (ER) | payer OTHER, MEDICAID | END 2022-06-02 21:27 | disposition home or self-care (01) | LOC: ERS 19:42 | DX: L55.0 Sunburn of first degree (principal); I10 Essential (primary) hypertension; I48.91 Unspecified atrial fibrillation | CPT/HCPCS: 99282 ==

== ENCOUNTER 2022-08-20 21:32 | Emergency (ER) | payer OTHER, MEDICAID ==
[2022-08-20] MEDS ORDERED: Magnesium 2 GM/50 ML BAG (IN WATER) ONE (22:10)
[2022-08-20] MEDS ORDERED: Diltiazem 125 MG/25 ML ONE (22:28)
[2022-08-20 22:30] LABS: #Eosinphils 0.2 thou/uL (0.0-0.7); #Lymphocytes 1.7 thou/uL (1.20-3.40); #Monocytes 0.5 thou/uL (0.11-0.59); #Neutrophils 1.5 thou/uL (1.40-6.50); %Basophils 0.7 % (0.0-1.0); %Eosinophils 4.2 % (0.0-10.0); %Lymphocytes 44.4 % (21.0-51.0); %Monocytes 12.5 % (0.0-10.0); %Neutrophils 38.3 % (42.0-75.0); Hemoglobin 14.1 g/dL (12.0-16.0); Mean Corpuscular HGB CONC 31.4 g/dL (32.0-36.0); Mean Corpuscular Hemoglobin 27.8 pg (27.0-31.0); Mean Corpuscular Volume 88.5 fL (78.0-98.0); Mean Platelet Volume 9.2 fL (7.4-10.4); Platelet Count 213 thou/uL (130-400); RBC Distribution Width 12.2 % (11.5-14.5); Red Blood Cell (RBC) Count 5.06 mill/uL (4.20-5.40); White Blood Cell (WBC) Count 3.9 thou/uL (4.8-10.8)
[2022-08-20 23:00] LABS: ALT (SGPT) 12 U/L (8-55); AST (SGOT) 15 U/L (5-34); Albumin 3.6 g/dL (3.5-5.0); Alkaline Phosphatase 65 U/L (40-110); Anion Gap 15 mmol/L (10-20); BUN (Urea Nitrogen) 10 mg/dL (9.8-20.1); Bilirubin, Total 0.5 mg/dL (0.2-1.2); Calc. Creatinine Clearance 0 mL/min (70-130); Calcium 9.3 mg/dL (7.8-10.44); Carbon Dioxide 19 mmol/L (22-29); Chloride 112 mmol/L (98-107); Estimated GFR 71; Glucose 94 mg/dL (70-105); Potassium 3.7 mmol/L (3.5-5.1); Protein, Total 6.6 g/dL (6.0-8.3); Sodium 142 mmol/L (136-145)
[2022-08-20 23:11] LABS: INR-International Normal Ratio 1.1; Prothrombin Time 14.4 sec (12.0-14.7)
[2022-08-20 23:12] LABS: PTT 38.4 sec (22.9-36.1)
[2022-08-20 23:16] LABS: Magnesium 1.8 mg/dL (1.6-2.6)
[2022-08-20 23:37] LABS: Bilirubin Negative (Negative); Blood, Urine 2+ (Negative); Clarity Turbid (Clear); Glucose, Urine (Dipstick) Normal (Negative); Ketone, Urine Negative (Negative); Leukocyte 500 Leu/uL (Negative); Nitrite Negative (Negative); Protein, Urine (Dipstick) 50 mg/dL (Neg-Trace); Specific Gravity, Urine 1.014 (1.002-1.036)
[2022-08-20] MEDS ORDERED: Fentanyl 100 MCG/2 ML VIAL ONE (23:40)
[2022-08-20] MEDS ORDERED: Ondansetron ODT 4 MG TAB ONE (23:40)
[2022-08-20] MEDS ORDERED: Ondansetron PF 4 MG/2 ML Vial ONE (23:41)
[2022-08-20 23:50] LABS: Bacteria/HPF 1+ HPF (None Seen); RBC/HPF 0-3 HPF (0-3); Squamous Epithelial 0-3 HPF (0-3)
== END 2022-08-21 00:10 | disposition home or self-care (01) ==
LOC: ERS 21:32
DX: E86.0 Dehydration (principal); I48.91 Unspecified atrial fibrillation; I11.0 Hypertensive heart disease with heart failure; I50.9 Heart failure, unspecified; Z79.899 Other long term (current) drug therapy; Z21 Asymptomatic human immunodeficiency virus [HIV] infection status; Z79.01 Long term (current) use of anticoagulants
CPT/HCPCS: 71045; 80053; 81003; 81015; 83690; 83735; 83880; 84484; 85025; 85610; 85730; 93005; 96374; 96375; J2405; J3010; J3475; Q0162

== ENCOUNTER 2022-10-23 09:35 | Outpatient (CLI) | payer OTHER | END 2022-10-23 09:36 | disposition home or self-care (01) | LOC: BICRAD 09:35 | PROVIDERS: ATTEND Nurse Practitioner Family | DX: M25.562 Pain in left knee (principal) ==

== ENCOUNTER 2023-03-05 11:05 | Emergency (ER) | payer OTHER ==
[2023-03-05 12:25] LABS: #Basophils 0.1 thou/uL (0.0-0.2); #Eosinphils 0.1 thou/uL (0.0-0.7); #Lymphocytes 1.1 thou/uL (1.20-3.40); #Monocytes 0.3 thou/uL (0.11-0.59); #Neutrophils 0.7 thou/uL (1.40-6.50); %Basophils 2.6 % (0.0-1.0); %Lymphocytes 48.1 % (21.0-51.0); %Monocytes 13.9 % (0.0-10.0); %Neutrophils 30.4 % (42.0-75.0); Hemoglobin 13.8 g/dL (12.0-16.0); Mean Corpuscular Hemoglobin 29.2 pg (27.0-31.0); Mean Corpuscular Volume 88.4 fl (78.0-98.0); Platelet Count 173 10x3/uL (130-400); RBC Distribution Width 11.8 % (11.5-14.5); Red Blood Cell (RBC) Count 4.72 mill/uL (4.20-5.40); White Blood Cell (WBC) Count 2.2 10x3/uL (4.8-10.8)
[2023-03-05 12:42] LABS: ALT (SGPT) 9 U/L (8-55); AST (SGOT) 13 U/L (5-34); Albumin 3.9 g/dL (3.5-5.0); Alkaline Phosphatase 53 U/L (40-110); Anion Gap 12 mmol/L (10-20); BUN (Urea Nitrogen) 10 mg/dL (9.8-20.1); Bilirubin, Total 0.7 mg/dL (0.2-1.2); Calc. Creatinine Clearance 0 mL/min (70-130); Calcium 9.4 mg/dL (7.8-10.44); Carbon Dioxide 26 mmol/L (22-29); Chloride 109 mmol/L (98-107); Estimated GFR 102; Globulin 2.9 g/dL (2.4-3.5); Glucose 89 mg/dL (70-105); Potassium 3.7 mmol/L (3.5-5.1); Protein, Total 6.8 g/dL (6.0-8.3); Sodium 143 mmol/L (136-145)
[2023-03-05 13:16] LABS: Bacteria/HPF 2+ HPF (None Seen); Bilirubin Negative (Negative); Blood, Urine 3+ (Negative); Clarity Turbid (Clear); Glucose, Urine (Dipstick) Normal (Negative); Ketone, Urine Negative (Negative); Leukocyte 500 Leu/uL (Negative); Nitrite Negative (Negative); Protein, Urine (Dipstick) 30 mg/dL (Neg-Trace); Squamous Epithelial 21-50 HPF (0-3); WBC/HPF Greater than 50 HPF (0-3)
[2023-03-05 13:18] LABS: RBC/HPF 21-50 HPF (0-3)
[2023-03-05] MEDS ORDERED: Acetaminophen 500 MG TAB ONE (13:40)
[2023-03-05] MEDS ORDERED: Ketorolac Tromethamine 30 MG/ML VIAL ONE (13:47)
== END 2023-03-05 13:53 | disposition home or self-care (01) ==
LOC: ERS 11:05
DX: N39.0 Urinary tract infection, site not specified (principal); D72.819 Decreased white blood cell count, unspecified
CPT/HCPCS: 36415; 80053; 81003; 81015; 85025; 87077; 87086; 87186; 96374; J1885